=== PATIENT | female | born 1985 | race Caucasian/White ===

== ENCOUNTER → 2018-12-28 | Outpatient (CLI) | payer OTHER, SELFPAY ==
[2018-12-28] MEDS: Zolpidem Tartrate 5 MG Tablet PO (21:40)
== END | disposition home or self-care (01) ==
LOC: SL 20:42
PROVIDERS: Family Provider Family Medicine; PCP Family Medicine; Referring Provider Family Medicine; Visit Provider Family Medicine
DX: R06.81 Apnea, not elsewhere classified (principal)
CPT/HCPCS: 95811

== ENCOUNTER → 2019-01-11 | Outpatient (CLI) | payer OTHER, SELFPAY | END | disposition home or self-care (01) | LOC: SL 17:19 | PROVIDERS: Family Provider Family Medicine; PCP Family Medicine; Referring Provider Family Medicine; Visit Provider Family Medicine | DX: Z00.00 Encounter for general adult medical examination without abnormal findings (principal) ==

== ENCOUNTER → 2020-02-17 13:15 | Outpatient (CLI) | payer OTHER, SELFPAY ==
[2019-01-11 09:22] VITALS: BMI 47.2
[2020-02-17 15:26] LABS: Absolute Lymphocyte Count 2.52 X10^3/uL (0.83-4.51); Absolute Neutrophil Count 3.6 X10^3/uL (2.0-7.7); Basophil# 0.02 X10^3/uL; Basophil% 0.3 % (0-1); Eosinophil# 0.15 X10^3/uL; Eosinophils% 2.2 % (0-5); Hematocrit 40.3 % (37-47); Hemoglobin 13.2 g/dL (12.0-15.0); Lymphocyte # 2.52 X10^3/ul (4.0); Lymphocyte % 36.7 % (19-41); Mean Corp Hgb Conc 32.8 g/dL (32-36); Mean Corpuscular Hgb 28.3 pg (27.0-32.0); Mean Corpuscular Volume 86.5 fL (81-99); Monocyte# 0.57 X10^3/uL; Monocyte% 8.3 % (0-10); NRBC Flagged by Analyzer 0 % (0-5); Neutrophil # 3.59 X10^3/uL (2.7-7.7); Neutrophil % 52.2 % (47-70); Platelet Count 290 K/mm3 (150-450); RBC Distribution Width CV 13.3 % (11.6-14.6); RBC Distribution Width SD 41.2 fl (35.1-43.9); Red Blood Count 4.66 M/mm3 (4.2-5.4); White Blood Count 6.9 K/mm3 (4.4-11.0)
[2020-02-17 16:53] LABS: Vitamin B12 340 pg/mL (211-911); Vitamin D,25 Hydroxy 27.6 ng/mL
[2020-02-17 16:59] LABS: ALB/GLOB Ratio 0.8 RATIO (0.9-2.4); AST(SGOT) 27 U/L (15-37); Alanine Aminotransfer ALT/SGPT 60 U/L (13-56); Albumin, Serum 3.5 g/dL (3.2-5.0); Alkaline Phosphatase 87 U/L (45-117); Anion Gap 8 (5-15); BUN 11 mg/dL (7-18); BUN/Creat Ratio 14.6 RATIO (10-20); Calcium,Total 8.6 mg/dL (8.5-10.1); Chloride 103 mmol/L (98-107); Creatinine, Serum 0.76 mg/dL (0.55-1.02); EST Glomerular Filtration Rate 94 mL/min (>60); Est Glom Filt Rate - Afr Amer 114 mL/min (>60); Free T3 3.2 pg/mL (2.18-3.98); Globulin 4.2 g/dL (2.2-4.2); Glucose 80 mg/dL (74-106); Potassium 3.7 mmol/L (3.5-5.1); Protein, Total 7.7 g/dL (6.4-8.2); Sodium Level 136 mmol/L (136-145); T4 Free Direct 0.87 ng/dL (0.76-1.46); Thyroid Stim Hormone (TSH) 0.68 uIU/mL (0.358-3.74)
== END ==
PROVIDERS: PCP Family Medicine; Visit Provider Family Medicine
DX: E55.9 Vitamin D deficiency, unspecified (principal); E03.9 Hypothyroidism, unspecified; K76.89 Other specified diseases of liver; E53.8 Deficiency of other specified B group vitamins; R53.83 Other fatigue
CPT/HCPCS: 36415; 80053; 82306; 82607; 84439; 84443; 84481; 85025

== ENCOUNTER → 2020-12-12 11:20 | Outpatient (CLI) | payer MEDICAID, SELFPAY ==
[2020-11-20 13:04] VITALS: BMI 47.5
--- NOTE | 2020-12-12 11:25 | US_ITS ---
STUDY: ULTRASOUND OF THE FEMALE PELVIS - COMPLETE REASON FOR EXAM: Female, 35 years old. Abnormal uterine bleeding. LMP: 12/04/2020. TECHNIQUE: Transabdominal and Transvaginal TECHNICAL QUALITY: Adequate. COMPARISON: None. FINDINGS: The uterus is anteverted and is in a midline position. The uterus measures 9.8 cm x 3.2 cm x 4 cm. Normal uterine cervix. The endometrium measures 9.6 mm in thickness, and is hyperechoic. There is no demonstrated endometrial mass. There is no demonstrated myometrial mass. I.U.D. - The patient does not have an I.U.D. The right ovary is visualized. The right ovary measures 4.3 cm x 3.3 cm x 3.1 cm. There is a 2.4 cm x 1.9 cm x 1.5 cm septated right ovarian cyst. 4 cm x 4.2 cm x 3.1 cm right paraovarian cyst. There is normal arterial and normal venous vascularity. The left ovary is visualized. The left ovary measures 3.8 cm x 2.9 cm x 2.2 cm. There is no left ovarian cyst or ovarian mass. There is no visualized left adnexal mass or complex lesion. There is normal arterial and normal venous vascularity. There is no fluid in the cul-de-sac. The pre void volume of the bladder was 104 ml. US/Pelvic (Non ) IMPRESSION: 2.4 cm x 1.9 cm x 1.5 sinus septated right ovarian cyst. 4 cm x 4.2 cm x 3.1 cm right paraovarian cyst. Follow-up is recommended. Electronically Signed: Marcio Stephenson MD at 13:05 EDT , Service support ,
--- NOTE | 2020-12-12 11:25 | US_ITS ---
STUDY: ULTRASOUND OF THE FEMALE PELVIS - COMPLETE REASON FOR EXAM: Female, 35 years old. Abnormal uterine bleeding. LMP: 12/04/2020. TECHNIQUE: Transabdominal and Transvaginal TECHNICAL QUALITY: Adequate. COMPARISON: None. FINDINGS: The uterus is anteverted and is in a midline position. The uterus measures 9.8 cm x 3.2 cm x 4 cm. Normal uterine cervix. The endometrium measures 9.6 mm in thickness, and is hyperechoic. There is no demonstrated endometrial mass. There is no demonstrated myometrial mass. I.U.D. - The patient does not have an I.U.D. The right ovary is visualized. The right ovary measures 4.3 cm x 3.3 cm x 3.1 cm. There is a 2.4 cm x 1.9 cm x 1.5 cm septated right ovarian cyst. 4 cm x 4.2 cm x 3.1 cm right paraovarian cyst. There is normal arterial and normal venous vascularity. The left ovary is visualized. The left ovary measures 3.8 cm x 2.9 cm x 2.2 cm. There is no left ovarian cyst or ovarian mass. There is no visualized left adnexal mass or complex lesion. There is normal arterial and normal venous vascularity. There is no fluid in the cul-de-sac. The pre void volume of the bladder was 104 ml. US/Transvaginal Non- IMPRESSION: 2.4 cm x 1.9 cm x 1.5 sinus septated right ovarian cyst. 4 cm x 4.2 cm x 3.1 cm right paraovarian cyst. Follow-up is recommended. Electronically Signed: Marcio Stephenson MD at 13:05 EDT , Service support ,
== END ==
PROVIDERS: PCP Internal Medicine; Referring Provider Obstetrics & Gynecology; Visit Provider Obstetrics & Gynecology
DX: N93.9 Abnormal uterine and vaginal bleeding, unspecified (principal)
CPT/HCPCS: 76830; 76856

== ENCOUNTER → 2020-12-25 14:41 | Outpatient (CLI) | payer MEDICAID, SELFPAY ==
--- NOTE | 2020-12-25 | EMB_PTH ---
PATIENT: ALLIE RANDALL LOC: [facility]#:[id number] AGE/SX: 39/F ROOM: RE12/25/[address]: Dr. Monica Lopez MD : 1985 BED: DIS: SPEC #: [id number] RECD: 12/25/20 16:24 STATUS: MARGIE MANPREET #: [id number] GINGER: 12/25/20 00:[address]: Monica Lopez DEPT: SURGICAL PATHOLOGY RECD BY: Mari Darden ENTERED: 12/26/20 08:32 SP TYPE: ENDOM BX/C NEIL DR: Dr. Maria Luisa Anthony, DO Tissues: Endometrium, NOS Procedures: Surgery Specimen Level IV HEADER OPERATION: Endometrial biopsy PRE-OP DIAGNOSIS: Abnormal uterine bleeding TISSUE SUBMITTED: Endometrial biopsy MICROSCOPIC DIAGNOSIS Endometrium, biopsy: Dyssynchronous endometrium with glandular and stromal breakdown. AM:mookie 12/27/2020 COMMENT Case has been reviewed in consultation with Dr. Mirza who concurs with the above diagnosis. IDC:[id number] MICROSCOPIC DESCRIPTION Slides are reviewed. GROSS DESCRIPTION Received is one container labeled with the patient's name and not further designated. The specimen consists of multiple fragments of dela cruz hemorrhagic soft tissue mixed with mucoid tissue that in aggregate measure 3 x 2.5 x 0.3 cm. The specimen is totally submitted in one cassette. / CHACHO:mookie 12/26/2020 TC:5 CPT: 47277
[2020-12-25 13:42] VITALS: BMI 48.4
[2020-12-25 15:00] LABS: Absolute Lymphocyte Count 2.47 X10^3/uL (0.83-4.51); Absolute Neutrophil Count 3.8 X10^3/uL (2.0-7.7); Basophil# 0.03 X10^3/uL; Basophil% 0.4 % (0-1); Eosinophil# 0.16 X10^3/uL; Eosinophils% 2.2 % (0-5); Hematocrit 39.5 % (37-47); Hemoglobin 12.7 g/dL (12.0-15.0); Lymphocyte # 2.47 X10^3/ul (0.83-4.51); Lymphocyte % 34.6 % (19-41); Mean Corp Hgb Conc 32.2 g/dL (32-36); Mean Corpuscular Hgb 27.4 pg (27.0-32.0); Mean Corpuscular Volume 85.3 fL (81-99); Mean Platelet Vol. 8.9 fl (6.2-12.0); Monocyte# 0.63 X10^3/uL; Monocyte% 8.8 % (0-10); NRBC Flagged by Analyzer 0 % (0-5); Neutrophil # 3.82 X10^3/uL (2.7-7.7); Neutrophil % 53.7 % (47-70); Platelet Count 356 K/mm3 (150-450); RBC Distribution Width CV 13.2 % (11.6-14.6); RBC Distribution Width SD 40.9 fl (35.1-43.9); Red Blood Count 4.63 M/mm3 (4.2-5.4); White Blood Count 7.1 K/mm3 (4.4-11.0)
== END ==
PROVIDERS: Nurse Practitioner Women's Health; PCP Internal Medicine; Referring Provider Obstetrics & Gynecology; Visit Provider Obstetrics & Gynecology
DX: N93.9 Abnormal uterine and vaginal bleeding, unspecified (principal)
CPT/HCPCS: 36415; 85025; 88305

== ENCOUNTER → 2021-01-09 11:17 | Outpatient (CLI) | payer MEDICAID, SELFPAY ==
[2020-11-20 13:04] VITALS: BMI 47.5
[2020-12-25 13:42] VITALS: BMI 48.4
--- NOTE | 2021-01-09 11:19 | US_ITS ---
STUDY: ULTRASOUND OF THE FEMALE PELVIS - COMPLETE REASON FOR EXAM: Female, 35 years old. Ovarian cyst LMP: 09/15/2020. TECHNIQUE: Transabdominal and Transvaginal TECHNICAL QUALITY: Adequate. COMPARISON: Comparison is made with prior examination dated 12/12/2020. FINDINGS: The uterus is anteverted and is tilted to the right side of the pelvis. The uterus measures 8 cm x 5.2 cm x 4 cm. Normal uterine cervix. The endometrium measures 3 mm in thickness, and is hyperechoic. There is no demonstrated endometrial mass. There is no demonstrated myometrial mass. I.U.D. - The patient does not have an I.U.D. The right ovary is visualized. The right ovary measures 3.5 cm x 2.5 cm x 1.9 cm. Small follicles are seen. Persistent 3.7 cm x 4.2 cm x 2.6 cm right paraovarian cyst. There is normal arterial and normal venous vascularity. The left ovary is visualized. The left ovary measures 3.4 cm x 2.8 cm x 2.3 cm. There is no left ovarian cyst or ovarian mass. There is no visualized left adnexal mass or complex lesion. There is normal arterial and normal venous vascularity. There is no fluid in the cul-de-sac. The pre void volume of the bladder was 150 ml. Polycystic ovary disease: No. US/Pelvic (Non ) IMPRESSION: Stable right paraovarian cyst measuring 3.7 cm x 4.2 cm x 2.6 cm. Electronically Signed: Marcio Stephenson MD at 15:30 EDT , Service support ,
--- NOTE | 2021-01-09 11:19 | US_ITS ---
STUDY: ULTRASOUND OF THE FEMALE PELVIS - COMPLETE REASON FOR EXAM: Female, 35 years old. Ovarian cyst LMP: 09/15/2020. TECHNIQUE: Transabdominal and Transvaginal TECHNICAL QUALITY: Adequate. COMPARISON: Comparison is made with prior examination dated 12/12/2020. FINDINGS: The uterus is anteverted and is tilted to the right side of the pelvis. The uterus measures 8 cm x 5.2 cm x 4 cm. Normal uterine cervix. The endometrium measures 3 mm in thickness, and is hyperechoic. There is no demonstrated endometrial mass. There is no demonstrated myometrial mass. I.U.D. - The patient does not have an I.U.D. The right ovary is visualized. The right ovary measures 3.5 cm x 2.5 cm x 1.9 cm. Small follicles are seen. Persistent 3.7 cm x 4.2 cm x 2.6 cm right paraovarian cyst. There is normal arterial and normal venous vascularity. The left ovary is visualized. The left ovary measures 3.4 cm x 2.8 cm x 2.3 cm. There is no left ovarian cyst or ovarian mass. There is no visualized left adnexal mass or complex lesion. There is normal arterial and normal venous vascularity. There is no fluid in the cul-de-sac. The pre void volume of the bladder was 150 ml. Polycystic ovary disease: No. US/Transvaginal Non- IMPRESSION: Stable right paraovarian cyst measuring 3.7 cm x 4.2 cm x 2.6 cm. Electronically Signed: Marcio Stephenson MD at 15:30 EDT , Service support ,
== END ==
PROVIDERS: PCP Internal Medicine; Referring Provider Obstetrics & Gynecology; Visit Provider Obstetrics & Gynecology
DX: N83.201 Unspecified ovarian cyst, right side (principal)
CPT/HCPCS: 76830; 76856